=== PATIENT | male | born 1960 | race Caucasian/White ===

== ENCOUNTER 2020-11-19 07:11 | Emergency (ER) | payer BC ==
[2020-11-19] MEDS ORDERED: CYCLOBENZAPRINE 10 MG TAB ONE (07:55)
[2020-11-19] MEDS ORDERED: MORPHINE 4 MG/ML SYR ONE (07:56)
[2020-11-19] MEDS ORDERED: KETOROLAC 30 MG/ML INJ ONE (07:56)
[2020-11-19] MEDS ORDERED: ONDANSETRON 4 MG/2 ML VIAL ONE (07:56)
--- NOTE | 2020-11-19 08:25 | RAD REPORT ---
EXAM DESCRIPTION: CT - C Spine Wo Con - 11/19/2020 7:51 am CLINICAL HISTORY: Neck pain, decreased range of motion COMPARISON: None. TECHNIQUE: Axial 2 mm thick images of the cervical spine were obtained with sagittal and coronal rec onstruction images generated and reviewed. All CT scans are performed using dose optimization technique as appropriate and may include automated exposure control or mA/KV adjustment according to patient size. FINDINGS: Cervical bodies are normal in height. No compression fracture. No lytic, sclerotic or expa nsile bony destructive process. Very slight anterior subluxation of C3 on C4 secondary to prominent f acet degenerative change. Significant C5-6 disc space narrowing with foraminal and central canal endp late spurring. Prominent degenerative change present at the dens C1 level. Lateral masses of C1 are n ormally positioned relative to the occipital condyles of the skullbase as well as the body of C2. Significant right-sided foraminal stenosis C3-4 from uncovertebral joint hypertrophy and severe facet degenerative change. Bilateral bony foraminal encroachment present at C5-6. Posterior disc bulge and endplate spurring changes are seen at C3-4, C4-5, C5-6 and C6-7. These changes encroach into the laura tral canal. Disc herniation cannot be accurately assessed on CT imaging. Central canal detail is inherently limited on CT imaging. IMPRESSION: No fracture or acute cervical alignment abnormality. Advanced for age cervical spine degenerative changes are present with significant bony foraminal encr oachment on the right at C3-4 and bilateral at C5-6. Central canal detail is inherently limited on CT imaging. Concerns for disc herniation, central canal abnormality or occult bone process can be addressed with MR imaging.
--- NOTE | 2020-11-19 08:29 | ER ---
Nurse's Notes [facility] Name: Benjamín Acevedo Age: 60 yrs Sex: Male : 1960 Arrival Date: 11/19/2020 Time: 07:13 Bed 13 Private MD: Diagnosis: Sprain of ligaments of cervical spine;Torticollis Presentation: 11/19 07:24 Chief complaint: Patient states: pt reports that he has had severe neck pain since tr6 Wednesday. pt unable to turn his head. pt denies n/v/d or fever. Coronavirus screen: Client denies travel out of the [place] in the last 14 days. At this time, the client does not indicate any symptoms associated with coronavirus-19. Ebola Screen: Patient negative for fever greater than or equal to 101.5 degrees Fahrenheit, and additional compatible Ebola Virus Disease symptoms Patient denies exposure to infectious person. Patient denies travel to an Ebola-affected area in the 21 days before illness onset. Acute neurological deficit: none identified. Initial Sepsis Screen:. Onset of symptoms was November 17, 2020. 07:24 Method Of Arrival: Ambulatory tr6 07:24 Acuity: ELOY 4 tr6 07:33 Initial Sepsis Screen: Does the patient meet any 2 criteria? No. Patient's initial tr6 sepsis screen is negative. Does the patient have a suspected source of infection? No. Patient's initial sepsis screen is negative. Risk Assessment: Do you want to hurt yourself or someone else? Patient reports no desire to harm self or others. Triage Assessment: 07:28 General: Appears uncomfortable, Behavior is calm, cooperative, appropriate for age. tr6 Pain: Complains of pain in c/o neck pain radiating up to back of head and down to shoulders since wednesday Pain currently is 9 out of 10 on a pain scale. EENT: Denies. Neuro: No deficits noted. Cardiovascular: No deficits noted. Respiratory: No deficits noted. GI: No deficits noted. : No deficits noted. Derm: No deficits noted. Musculoskeletal: Reports pain in neck. Historical: - Allergies: 08:32 No Known Allergies; tr6 - Immunization history:: Adult Immunizations. - Social history:: Smoking status: Patient reports use of chewing tobacco. Patient uses alcohol, on a daily basis. claims drinking about a 6 pack/day. pt reports "6 pack daily, or maybe just on my days off". Screenin:32 Abuse screen: Denies threats or abuse. Nutritional screening: No deficits noted. tr6 Tuberculosis screening: No symptoms or risk factors identified. Fall Risk None identified. Assessment: 07:31 General: see triage assessment. Neuro: No deficits noted. Level of Consciousness is tr6 awake, alert, obeys commands, Oriented to person, place, time, situation, Appropriate for age [employer] are equal bilaterally Gait is steady, Speech is normal, Facial symmetry appears normal. 07:47 Reassessment: pt transferred to CT via wheelchair. tr6 07:55 Reassessment: Patient appears in no apparent distress at this time. No changes from tr6 previously documented assessment. Patient and/or family updated on plan of care and expected duration. Pain level reassessed. Patient is alert, oriented x 3, equal unlabored respirations, skin warm/dry/pink. pt returned from CT. pt reports that his pain is much better. aware. Pending CT results. 08:30 Pain: Goal of pain control is to sleep comfortably, perform activities of daily living, tr6 return to work, pt reports that his neck pain is "much better". Vital Signs: 07:24 BP 122 / 62; Pulse 91; Resp 18; Temp 98.4; Pulse Ox 100% ; tr6 ED Course: 07:13 Patient arrived in ED. am2 07:19 Samuel Warren MD is Attending Physician. tw4 07:28 Triage completed. tr6 07:31 Arm band placed on right wrist. Patient placed in an exam room. tr6 07:32 Patient has correct armband on for positive identification. Bed in low position. Call tr6 light in reach. Pulse ox on. NIBP on. 07:32 No provider procedures requiring assistance completed. tr6 07:45 Inserted saline lock: 20 gauge in left antecubital area, using aseptic technique. tr6 ,using aseptic technique. by SHAUNA Ruiz. 07:51 CT C Spine In Process Unspecified. EDMS 08:31 IV discontinued, intact, bleeding controlled, No redness/swelling at site. tr6 Administered Medications: 07:46 Drug: TORadol (ketorolac) 30 mg Route: IVP; Site: left antecubital; tr6 07:55 Follow up: Response: No adverse reaction; Pain is decreased tr6 07:46 Drug: Flexeril (cyclobenzaprine) 10 mg Route: PO; tr6 07:55 Follow up: Response: No adverse reaction; Pain is decreased tr6 07:46 Drug: morphine 4 mg Route: IVP; Site: left antecubital; tr6 07:55 Follow up: Response: No adverse reaction; Pain is decreased tr6 07:46 Drug: Zofran (Ondansetron) 4 mg Route: IVP; Site: left antecubital; tr6 07:54 Follow up: Response: No adverse reaction tr6 Outcome: 08:28 Discharge ordered by . tw4 08:31 Discharged to home ambulatory. tr6 08:31 Condition: improved 08:31 Discharge instructions given to patient. 08:41 Patient left the ED. tr6 Signatures: Dispatcher [employer] EDRadha Fisher Terrence, MD MD tw4 Sara Randolph RN RN tr6
--- NOTE | 2020-11-19 08:29 | EDPHYS ---
Physician Documentation [facility] Name: Benjamín Acevedo Age: 60 yrs Sex: Male : 1960 Arrival Date: 11/19/2020 Time: 07:13 Bed 13 Private MD: ED Physician Samuel Warren HPI: 11/19 07:34 This 60 yrs old Male presents to ER via Ambulatory with complaints of Neck Pain, <24hrs tw4 Old. 07:34 The patient or guardian complains of decreased range of motion, an injury, pain. The tw4 symptoms are located on the occipital area and base of the skull. Onset: The symptoms/episode began/occurred yesterday. Context: The problem was sustained at home. Associated signs and symptoms: The patient has no apparent associated signs or symptoms. The pain does not radiate. Modifying factors: The symptoms are alleviated by nothing. the symptoms are aggravated by nothing. The patient has not experienced similar symptoms in the past. Historical: - Allergies: 08:32 No Known Allergies; tr6 - Immunization history:: Adult Immunizations. - Social history:: Smoking status: Patient reports use of chewing tobacco. Patient uses alcohol, on a daily basis. claims drinking about a 6 pack/day. pt reports "6 pack daily, or maybe just on my days off". ROS: 07:34 Constitutional: Negative for fever, chills, and weight loss, Eyes: Negative for injury, tw4 pain, redness, and discharge, Cardiovascular: Negative for chest pain, palpitations, and edema, Respiratory: Negative for shortness of breath, cough, wheezing, and pleuritic chest pain, Abdomen/GI: Negative for abdominal pain, nausea, vomiting, diarrhea, and constipation, Back: Negative for injury and pain, MS/Extremity: Negative for injury and deformity, Skin: Negative for injury, rash, and discoloration, Neuro: Negative for headache, weakness, numbness, tingling, and seizure. Exam: 07:34 Constitutional: This is a well developed, well nourished patient who is awake, alert, tw4 and in no acute distress. Head/Face: Normocephalic, atraumatic. 07:34 Cardiovascular: Regular rate and rhythm with a normal S1 and S2. No gallops, murmurs, or rubs. Normal PMI, no JVD. No pulse deficits. Respiratory: Lungs have equal breath sounds bilaterally, clear to auscultation and percussion. No rales, rhonchi or wheezes noted. No increased work of breathing, no retractions or nasal flaring. Abdomen/GI: Soft, non-tender, with normal bowel sounds. No distension or tympany. No guarding or rebound. No evidence of tenderness throughout. MS/ Extremity: Pulses equal, no cyanosis. Neurovascular intact. Full, normal range of motion. Neuro: Awake and alert, GCS 15, oriented to person, place, time, and situation. Cranial nerves II-XII grossly intact. Motor strength 5/5 in all extremities. Sensory grossly intact. Cerebellar exam normal. Normal gait. 07:34 Neck: External neck: tenderness, that is moderate, of the occiput, left mid cervical area, right mid cervical area, left trapezius, lower cervical area and right trapezius, C-spine: no acute changes, Trachea: is midline with no obvious abnormalities, ROM/movement: limited range of motion, that is moderate, in any direction. Vital Signs: 07:24 BP 122 / 62; Pulse 91; Resp 18; Temp 98.4; Pulse Ox 100% ; tr6 MDM: 07:19 Patient medically screened. tw4 17:11 Data reviewed: vital signs, nurses notes. Data interpreted: Pulse oximetry: tw4 Interpretation: normal. Counseling: I had a detailed discussion with the patient and/or guardian regarding: the historical points, exam findings, and any diagnostic results supporting the discharge/admit diagnosis. Response to treatment: There is no appreciated change of the patient's symptoms at this time. Special discussion: I discussed with the patient/guardian in detail that at this point there is no indication for admission to the hospital. It is understood, however, that if the symptoms persist or worsen the patient needs to return immediately for re-evaluation. 11/19 07:30 Order name: CT C Spine; Complete Time: : tw4 Administered Medications: 07:46 Drug: TORadol (ketorolac) 30 mg Route: IVP; Site: left antecubital; tr6 07:55 Follow up: Response: No adverse reaction; Pain is decreased tr6 07:46 Drug: Flexeril (cyclobenzaprine) 10 mg Route: PO; tr6 07:55 Follow up: Response: No adverse reaction; Pain is decreased tr6 07:46 Drug: morphine 4 mg Route: IVP; Site: left antecubital; tr6 07:55 Follow up: Response: No adverse reaction; Pain is decreased tr6 07:46 Drug: Zofran (Ondansetron) 4 mg Route: IVP; Site: left antecubital; tr6 07:54 Follow up: Response: No adverse reaction tr6 Disposition: 11/19/20 08:28 Discharged to Home. Impression: Sprain of ligaments of cervical spine, Torticollis. - Condition is Stable. - Discharge Instructions: Acute Torticollis, Adult, Cervical Sprain. - Prescriptions for Ibuprofen 800 mg Oral Tablet - take 1 tablet by ORAL route every 8 hours As needed take with food; 30 tablet. Tramadol 50 mg Oral Tablet - take 1 tablet by ORAL route every 8 hours as needed; 12 tablet. Cyclobenzaprine 5 mg Oral Tablet - take 1 tablet by ORAL route 3 times per day As needed; 15 tablet. - Medication Reconciliation Form, Thank You Letter, Antibiotic Education, Prescription Opioid Use form. - Follow up: Private Physician; When: Upon discharge from the Emergency Department; Reason: Recheck today's complaints, Continuance of care, Re-evaluation by your physician. - Problem is new. - Symptoms have improved. Signatures: Dispatcher [employer] Samuel Rosenthal MD MD tw4 Sara Randolph RN RN tr6 Corrections: (The following items were deleted from the chart) 08:41 08:28 11/19/2020 08:28 Discharged to Home. Impression: Sprain of ligaments of cervical tr6 spine; Torticollis. Condition is Stable. Forms are Medication Reconciliation Form, Thank You Letter, Antibiotic Education, Prescription Opioid Use. Follow up: Private Physician; When: Upon discharge from the Emergency Department; Reason: Recheck today's complaints, Continuance of care, Re-evaluation by your physician. Problem is new. Symptoms have improved. tw4
[2020-11-19 08:49] VITALS: BP 122/62; TEMP 98.4; O2SAT 100
== END 2020-11-19 08:41 | disposition home or self-care (01) ==
LOC: ER 07:11
DX: S13.4XXA Sprain of ligaments of cervical spine, initial encounter (principal); X58.XXXA Exposure to other specified factors, initial encounter; F17.220 Nicotine dependence, chewing tobacco, uncomplicated
CPT/HCPCS: 72125; J2405; 96374; 96375; 99284

== ENCOUNTER 2022-09-20 13:21 | Emergency (ER) | payer BC ==
[2022-09-20 13:35] LABS: Absolute Lymphocytes (CBC) 0.9 K/uL (0.7-4.9); Hematocrit 47.1 % (39.6-49.0); Lymphocytes % 4.4 % (15.3-44.8); MCV 96.9 fL (80-100); MPV 7.1 fL (7.6-11.3); RBC Red Blood Cell Count 4.87 M/uL (4.33-5.43)
[2022-09-20] MEDS ORDERED: NA CHLORIDE 0.9% 1,000 ML ONE (13:35)
[2022-09-20 13:41] LABS: Protime INR 1.06
[2022-09-20 13:51] LABS: Potassium 3.8 mmol/L (3.5-5.1)
[2022-09-20 13:58] LABS: Albumin 3.9 g/dL (3.4-5.0); Bilirubin Direct 0.2 mg/dL (0-0.2); Protein, Total 7.9 g/dL (6.4-8.2)
[2022-09-20 14:00] LABS: Troponin High Sensitivity 130.8 pg/mL (<58.9)
--- NOTE | 2022-09-20 14:32 | RAD REPORT ---
EXAM DESCRIPTION: CT - Head C Spine Cap W Con - 09/20/2022 2:03 pm CLINICAL HISTORY: Head injury. History of multiple unwitnessed fall recently. Altered mental status. Forehead hematomas. COMPARISON: Chest Single View dated 09/20/2022; C Spine Wo Con dated 11/19/2020 TECHNIQUE: Head and cervical spine CT images were obtained without IV contrast. Chest, abdomen, and pelvis CT images were obtained following intravenous administration of 90 mL Isovue-300. Multiplanar reformats were generated and reviewed. All CT scans are performed using dose optimization technique as appropriate and may include automated exposure control or mA/KV adjustment according to patient size. FINDINGS: CT HEAD: No evidence of hyperdense intracranial hemorrhage. Large region of hypoattenuation in the right infer ior cerebellum, with mass-effect, effacing the lower aspect of the fourth ventricle, with mass effect on the medulla. A degree of leftward midline shift in the posterior fossa is noted, approximately 5 millimeters. No abnormal extra-axial fluid collections. Diffuse dilation of the supratentorial ventri cular system. No supratentorial midline shift no intraventricular hemorrhage. Areas of soft tissue sw elling/hematoma along the right frontal scalp. Up to moderate mucosal thickening within the left maxi llary sinus. No acute calvarial fracture. CT CERVICAL SPINE: Straightening of normal cervical lordosis which may be positional or secondary to muscle spasm. No ac lynda cervical spine fracture or subluxation. Vertebral body heights are well maintained. Multilevel de generative changes. Variable degrees of disc height loss, most pronounced at C5-6. There may be mild bony central canal stenosis at C5-6 secondary to a pronounced broad-based posterior disc osteophyte c omplex formation. Variable degrees of neural foraminal narrowing, most pronounced bilaterally at C5-6 , and on the right at C3-4. No hyperattenuating canal hematoma. Prevertebral and paraspinous soft tis sues are unremarkable. CT CHEST: No pneumothorax, pulmonary contusion or pleural fluid collection. No mediastinal hematoma and the aor ta and pulmonary arteries are unremarkable. No chest will mass or abnormal axillary finding. No displ aced rib fracture or other significant bony finding. CT ABDOMEN/ PELVIS: No evidence of traumatic injury to solid abdominal viscera. Gallbladder and biliary tree are unremark able. No bowel injury or significant finding. No free air, free fluid or abnormal fat stranding. No u rinary bladder abnormality. Mild superior endplate compression deformity at L2 is noted, with no adjacent edema, probably chronic in nature . Mildly displaced right ninth rib fracture. IMPRESSION: Large area of hypoattenuation in the right inferior cerebellum, with mass effect and lef tward shift of the midline posterior fossa structures, measuring 5 millimeter. This raises concern fo r an acute to subacute infarct. Possibility of an underlying mass with edema is less likely but canno t be entirely excluded. Diffuse dilation of the supratentorial ventricular system. Although no priors are available for marlys rison, the appearance raises concern for acute obstructive hydrocephalus. No acute traumatic abnormality of the cervical spine. Multilevel degenerative changes. Mildly displaced right ninth rib fracture. No other acute findings in the chest. No other acute findings in the abdomen and pelvis. The findings were communicated to Rogelio Valadez on 09/20/2022 at 14:22 hours.
--- NOTE | 2022-09-20 14:36 | RAD REPORT ---
EXAM DESCRIPTION: Christina Single View09/20/2022 2:31 pm CLINICAL HISTORY: fall COMPARISON: No comparisons TECHNIQUE: Portable AP view of the chest. FINDINGS: The lungs are clear. No pneumothorax or effusion. The cardiomediastinal contours are unrem arkable. IMPRESSION: No acute cardiopulmonary process.
--- NOTE | 2022-09-20 14:50 | ER ---
Nurse's Notes [facility] Name: Benjamín Acevedo Age: 62 yrs Sex: Male : 1960 Arrival Date: 09/20/2022 Time: 13:20 Bed 3 Private MD: Diagnosis: Altered mental status, unspecified;Fracture of one rib, right side;Cerebral infarction, unspecified;Contusion of unspecified part of head, initial encounter Presentation: 09/20 13:27 Chief complaint: EMS states: Called for AMS post-fall, falls were unwitnessed, ph states that she had gone home to check on him and found him altered w/ injuries to the head. Pt oriented to person and place, VSS, states that he fell 3 times but could not remember were. Coronavirus screen: Vaccine status: Patient reports being unvaccinated. Ebola Screen: No symptoms or risks identified at this time. Mechanism of Injury: The problem was sustained at home, resulted from a fall. Risk considerations:. Initial Sepsis Screen: Does the patient meet any 2 criteria? No. Patient's initial sepsis screen is negative. Does the patient have a suspected source of infection? No. Patient's initial sepsis screen is negative. Risk Assessment: Do you want to hurt yourself or someone else? Patient reports no desire to harm self or others. Onset of symptoms was September 20, 2022. 13:27 Method Of Arrival: EMS: [facility] 13:27 Acuity: ELOY 2 ph 13:33 Care prior to arrival: IV initiated. 20 GA, in the right antecubital area. Trauma event jl7 details: Injury occurred in the [facility], Injury occurred: at home. Injury occurred: September 20, 2022. 14:40 An acute neurological deficit is present. The charge nurse has been notified. jl7 Pre-hospital glucose is not applicable to this patient. Triage Assessment: 14:00 The onset of the patients symptoms was September 16, 2022 at 12:00. Neuro: Reports jl7 dizziness. Trauma Activation: Alert Physician: ED Physician; Name: Rory; Notified At: 13:19; Arrived At: 13:19 Physician: General Surgeon; Name: ; Notified At: 13:19; Arrived At: Physician: Radiology; Name: Shannan; Notified At: 13:19; Arrived At: 13:21 Physician: Respiratory; Name: ; Notified At: 13:19; Arrived At: Physician: Lab; Name: ; Notified At: 13:19; Arrived At: Stroke Activation: Symptom onset > 6 hours Physician: Stroke Attending; Name: ; Notified At: ; Arrived At: Physician: Chief Stroke Resident; Name: ; Notified At: ; Arrived At: Physician: Stroke Resident; Name: ; Notified At: ; Arrived At: Physician: ED Attending; Name: Rory; Notified At: 14:22; Arrived At: 13:20 Physician: ED Resident; Name: ; Notified At: ; Arrived At: Historical: - Allergies: 13:31 No Known Allergies; ph - Home Meds: 13:39 None [Active]; jl7 - PMHx: 13:39 None; jl7 - PSHx: 13:39 None; jl7 - Immunization history:: Adult Immunizations unknown. - Social history:: Smoking status: Patient reports the use of cigarette tobacco products, smokes one-half pack cigarettes per day, Patient uses alcohol, on a daily basis. admits to "couple of beers" a day. - Immunization history: Last tetanus immunization: unknown. Screenin:36 [facility] ED Fall Risk Assessment (Adult) History of falling in the last 3 months, ph including since admission Yes- fall prone (multiple falls) (3 pts) Confusion or Disorientation Yes (5 pts) Intoxicated or Sedated No (0 pts) Impaired Gait No (0 pts) Mobility Assist Device Used No (0 pt) Altered Elimination No (0 pt) Score/Fall Risk Level 3 or more points = High Risk Oriented to surroundings, Maintained a safe environment, Hourly rounding (assess needs \\T\\ fall precautionary measures) done. Abuse screen: Denies threats or abuse. Denies injuries from another. Nutritional screening: No deficits noted. Tuberculosis screening: No symptoms or risk factors identified. Primary Survey: 13:19 NO uncontrolled hemorrhage observed. A: The client is alert. Airway: patent, No jl7 supplemental oxygen in use on arrival. Breathing/Chest: Spontaneous respiratory effort, equal unlabored respirations, breath sounds clear bilaterally, regular pattern, symmetrical chest rise and fall. Circulation: No external hemorrhage present. Regular and strong central pulse, skin warm/dry/normal color. Disability Pupils are equal, round, reactive to light and accommodation. Client is alert. Exposure/Environment: All clothing and personal items were removed. Forensic evidence collection is not deemed to be indicated at this time. Items placed in patient belonging bag. There is no evidence of uncontrolled external bleeding. Obvious injury(ies) are noted at this time: Swelling to forehead A warming method has been applied: A warm blanket has been provided to the patient. 14:00 Reassessment Breathing: Spontaneous respiratory effort, equal unlabored respirations, jl7 breath sounds clear bilaterally, regular pattern with symmetrical chest rise and fall. Assessment: 13:33 General: Appears in no apparent distress. well groomed, Behavior is calm, cooperative, ph appropriate for age. Pain: Complains of pain in face and back. Neuro: Level of Consciousness is awake, alert, obeys commands, Oriented to person, place, Moves all extremities. Speech is normal, Pupils are PERRLA, swelling noted to R side of forehead. Cardiovascular: Patient's skin is warm and dry. Respiratory: Airway is patent Respiratory effort is even, unlabored. GI: Patient currently denies abdominal pain, nausea, vomiting. Derm: Skin is pink, warm \\T\\ dry. Musculoskeletal: Circulation, motion, and sensation intact. Range of motion: intact in all extremities, Swelling present in right side of forehead. Injury Description: Abrasion sustained to posterior aspect of right shoulder Bruise sustained to bilateral knees. 13:55 Reassessment: Pt back from CT, x-ray at bedside. . aa5 14:20 Reassessment: reports last known normal was 5 days ago, 09/16/2022. jl7 14:33 Reassessment: ABEL Vera at bedside reassessing pt and talking with pt's . jl7 14:40 VAN Scoring: Arm Drift: Patients demonstrates NO arm weakness. Patient is VAN Negative. jl7 14:40 TNKase (Tenecteplase) Screening: Contraindications: Patient reports onset of signs and jl7 symptoms of stroke greater than 6 hours ago: Yes. 15:30 Reassessment: Pt more confused, appears to be attempting to smoke his fingers. ERD jl7 notified and to bedside. 15:30 [place] Swallow Protocol Exclusion Criteria: Unable to remain alert for testing: Yes jl7 Result:. 15:30 Neuro: Level of Consciousness is awake, obeys commands, confused, Oriented to person, jl7 place. 16:30 Neuro: Level of Consciousness is awake, confused, Oriented to person. jl7 16:55 Reassessment: [facility] at bedside for transport. jl7 Vital Signs: 13:27 BP 189 / 114; Pulse 118; Resp 18; Temp 97.8; Pulse Ox 95% on R/A; Weight 72.57 kg; ph Height 5 ft. 7 in. (170.18 cm); 14:07 BP 165 / 98; Pulse 100; Resp 17; Pulse Ox 95% ; jl7 14:50 BP 167 / 95; Pulse 92; Resp 15; Pulse Ox 97% ; jl7 15:45 BP 178 / 96; Pulse 83; Resp 18; Pulse Ox 100% ; jl7 16:30 BP 144 / 75; Pulse 78; Resp 19; Pulse Ox 97% ; jl7 13:27 Body Mass Index 25.06 (72.57 kg, 170.18 cm) ph Faina Coma Score: 13:27 Eye Response: spontaneous(4). Verbal Response: confused(4). Motor Response: obeys ph commands(6). Total: 14. 13:35 Eye Response: spontaneous(4). Verbal Response: confused(4). Motor Response: obeys cp commands(6). Total: 14. 13:37 Eye Response: spontaneous(4). Verbal Response: confused(4). Motor Response: obeys ph commands(6). Total: 14. 14:07 Eye Response: spontaneous(4). Verbal Response: confused(4). Motor Response: obeys jl7 commands(6). Total: 14. 14:50 Eye Response: spontaneous(4). Verbal Response: confused(4). Motor Response: obeys jl7 commands(6). Total: 14. 15:45 Eye Response: to voice(3). Verbal Response: confused(4). Motor Response: obeys jl7 commands(6). Total: 13. 16:30 Eye Response: to voice(3). Verbal Response: confused(4). Motor Response: obeys jl7 commands(6). Total: 13. Trauma Score (Adult): 13:37 Eye Response: spontaneous(1); Verbal Response: confused(1); Motor Response: obeys ph commands(2); Systolic BP: > 89 mm Hg(4); Respiratory Rate: 10 to 29 per min(4); [place] Score: 14; Trauma Score: 12 NIH Stroke Scale Scores: 14:35 NIHSS Score: 2 jl7 14:45 NIHSS Score: 2 cp ED Course: 13:20 Patient arrived in ED. aa5 13:23 Rogelio Valadez MD is Attending Physician. rn 13:26 Unique Guevara RN is Primary Nurse. ph 13:28 Koffi Bolivar PA is PHCP. cp 13:30 Initial lab(s) drawn, by me, sent to lab. Maintain EMS IV. Dressing intact. Good blood jl7 return noted. Site clean \\T\\ dry. Gauge \\T\\ site: 20 right AC. 13:31 Triage completed. ph 13:33 Arm band placed on Patient placed in an exam room, on a stretcher, on case monitor, ph on pulse oximetry. 13:37 Patient has correct armband on for positive identification. Bed in low position. Call ph light in reach. Side rails up X 1. Client placed on continuous cardiac and pulse oximetry monitoring. NIBP monitoring applied. 13:38 Patient maintains SpO2 saturation greater than 95% on room air. Thermoregulation: warm jl7 blanket given to patient. 14:09 CT Traumagram (Head C Spine CAP W Con) In Process Unspecified. EDMS 14:33 XRAY Chest (1 view) In Process Unspecified. EDMS 15:15 attempted to initiate a transfer with the [facility] / stroke line as eb requested by ED physician with no answer then hung up on. 15:23 intiated a transfer with Osiris Valente from the [facility]. eb 15:43 per Osiris Valente from the [facility] they will have to decline the eb patient in transfer due to being at capacity. 15:44 transfer intiated with Zena from the [facility]. eb 15:51 Inserted saline lock: 20 gauge in right forearm, using aseptic technique. jl7 16:[address] Griffin the neuro senior online marketing manager for [facility] with Koffi kelley patient transfer consultation. 16:17 administrative approval given by Zena Davila from the [facility]/ allie patient has been accepted to [facility] Neuro ICU/ [facility] has accepted the patient in transfer / report to be called to [phone]. 17:00 No provider procedures requiring assistance completed. Patient transferred, IV remains jl7 in place. intact, No redness/swelling at site. Administered Medications: 14:08 Drug: NS 0.9% 500 ml Route: IV; Rate: 1 bolus; Site: right antecubital; jl7 14:47 Follow up: IV Intake: 500ml jl7 16:58 Follow up: Response: No adverse reaction; IV Status: Infusion continued upon transfer jl7 14:14 Not Given (Other Intervention Used): NS 0.9% 1000 ml IV at 1000 ml once ph 15:08 Drug: fentaNYL (PF) 25 mcg Route: IVP; Site: right antecubital; jl7 16:14 Follow up: Response: No adverse reaction ph 16:31 Drug: Keppra (levETIRAcetam) 1000 mg Route: IV; Rate: calculated rate; Site: right ph forearm; 16:58 Follow up: Response: No adverse reaction; IV Status: Completed infusion jl7 16:58 Drug: fentaNYL (PF) 25 mcg Route: IVP; Site: right forearm; jl7 17:05 Follow up: Response: No adverse reaction ph Medication: 13:37 VIS not applicable for this client. ph Point of Care Testin:22 perhospital high jl7 Ranges: Intake: 14:47 IV: 500ml; Total: 500ml. jl7 17:00 PO: 0ml; IV: 700ml; Total: 1200ml. jl7 Output: 17:00 Urine: 800ml; Total: 800ml. jl7 Outcome: 14:49 ER care complete, transfer ordered by MD. kennedy 17:[address] [facility], Transfer form completed. jl7 17:00 Condition: stable 17:00 Discharge instructions given to patient, family, Instructed on the need for transfer, Demonstrated understanding of instructions. 17:00 Patient's length of stay was not longer than 2 hours. jl7 17:35 Patient left the ED. jl7 NIH Stroke Scale - NIH Stroke Score Date: 09/20/2022 Time: 14:35 Total Score = 2 1a. Level of Consciousness (LOC) - 0(Alert) 1b. Level of Consciousness (LOC) (Month \\T\\ Age) - 0(Both) 1c. LOC Commands (Open \\T\\ Closes Eyes/Window Trimmer) - 0(Both) 2. Best Gaze (Lateral Gaze Paresis) - 0(Normal) 3. Visual Field Loss - 0(No visual loss) 4. Facial Palsy - 0(Normal) 5a. Left Arm: Motor (10-second hold) - 0(No drift) 5b. Right Arm: Motor (10-second hold) - 0(No drift) 6a. Left Leg: Motor (5-second hold - always test supine) - 0(No drift) 6b. Right Leg: Motor (5-second hold - always test supine) - 0(No drift) 7. Limb Ataxia (finger/nose \\T\\ heel/agarwal - test with eyes open) - 0(Absent) 8. Sensory Loss (pinprick arms/legs/face) - 0(Normal) 9. Best Language: Aphasia (description/naming/reading) - 1(Mild to moderate aphasia) 10. Dysarthria (speech clarity - read or repeat words) - 1(Mild to Moderate) 11. Extinction and Inattention (visual/tactile/auditory/spatial/personal) - 0(No abnormality) Initials: jl7 NIH Stroke Scale - NIH Stroke Score Date: 09/20/2022 Time: 14:45 Total Score = 2 1a. Level of Consciousness (LOC) - 0(Alert) 1b. Level of Consciousness (LOC) (Month \\T\\ Age) - 0(Both) 1c. LOC Commands (Open \\T\\ Closes Eyes/Window Trimmer) - 0(Both) 2. Best Gaze (Lateral Gaze Paresis) - 0(Normal) 3. Visual Field Loss - 0(No visual loss) 4. Facial Palsy - 0(Normal) 5a. Left Arm: Motor (10-second hold) - 0(No drift) 5b. Right Arm: Motor (10-second hold) - 0(No drift) 6a. Left Leg: Motor (5-second hold - always test supine) - 0(No drift) 6b. Right Leg: Motor (5-second hold - always test supine) - 0(No drift) 7. Limb Ataxia (finger/nose \\T\\ heel/agarwal - test with eyes open) - 0(Absent) 8. Sensory Loss (pinprick arms/legs/face) - 0(Normal) 9. Best Language: Aphasia (description/naming/reading) - 1(Mild to moderate aphasia) 10. Dysarthria (speech clarity - read or repeat words) - 1(Mild to Moderate) 11. Extinction and Inattention (visual/tactile/auditory/spatial/personal) - 0(No abnormality) Initials: cp Signatures: Dispatcher [employer] EDMS Rogelio Valadez MD MD rn Haley Knight RN RN aa5 Unique Guevara RN RN Koffi Hilario PA PA cp Leal, Jahala RN RN jl7 Osiris Ramos Corrections: (The following items were deleted from the chart) 15:18 14:50 BP 118 / 74; Pulse 92bpm; Resp 15bpm; Pulse Ox 97%; jl7 jl7 16:10 16:02 connected the neuro senior online marketing manager for [facility] with Koffi kelley patient transfer consultation. allie
--- NOTE | 2022-09-20 14:50 | EDPHYS ---
Physician Documentation [facility] Name: Benjamín Acevedo Age: 62 yrs Sex: Male : 1960 Arrival Date: 09/20/2022 Time: 13:20 Bed 3 Private MD: ED Physician Rogelio Valadez HPI: 09/20 13:35 This 62 yrs old Male presents to ER via EMS with complaints of Head cp Injury-Adult. 13:35 The patient or guardian reports injury. The complaints affect the forehead and right cp oriental orthodox. Context of injury: The problem was sustained at home, resulted from a fall. 13:35 Associated signs and symptoms: Pertinent positives: altered mental status. cp 13:35 Patient brought to ED by EMS after reported fall. Patient found by neighbors outside of home asking for help. EMS reports unable to recall recent events leading up to fall. 13:35 Patient presents to ED with AMS. Unknown last normal. cp Historical: - Allergies: 13:31 No Known Allergies; ph - Home Meds: 13:39 None [Active]; jl7 - PMHx: 13:39 None; jl7 - PSHx: 13:39 None; jl7 - Immunization history:: Adult Immunizations unknown. - Social history:: Smoking status: Patient reports the use of cigarette tobacco products, smokes one-half pack cigarettes per day, Patient uses alcohol, on a daily basis. admits to "couple of beers" a day. - Immunization history: Last tetanus immunization: unknown. ROS: 13:38 Constitutional: Negative for fever. cp 13:38 Cardiovascular: Negative for chest pain. cp 13:38 Abdomen/GI: Negative for abdominal pain, vomiting. 13:38 Neuro: Positive for altered mental status. 13:38 Unable to obtain ROS due to altered mental status. Exam: 13:33 ECG was reviewed by the Attending Physician. cp 13:40 Head/Face: Normocephalic, atraumatic. cp 13:40 Constitutional: The patient appears alert, awake, non-diaphoretic, non-toxic, well developed, well nourished, uncomfortable. 13:40 Eyes: Periorbital structures: appear normal, Pupils: equal, round, and reactive to light and accomodation, Conjunctiva: normal, Sclera: no appreciated abnormality, Lids and lashes: appear normal, bilaterally. 13:40 ENT: External ear(s): are unremarkable, Nose: is normal, Mouth: Lips: moist, Oral mucosa: pink and intact, moist, Posterior pharynx: Airway: no evidence of obstruction, patent. 13:40 Neck: C-spine: C-collar placed in ED. 13:40 Chest/axilla: Inspection: normal, Palpation: is normal, no crepitus, no tenderness. 13:40 Cardiovascular: Rate: tachycardic, Rhythm: regular, Edema: is not appreciated, JVD: is not appreciated. 13:40 Respiratory: the patient does not display signs of respiratory distress, Respirations: normal, no use of accessory muscles, no retractions, Breath sounds: are clear throughout, no decreased breath sounds, no stridor, no wheezing. 13:40 Abdomen/GI: Inspection: abdomen appears normal, Palpation: abdomen is soft and non-tender, in all quadrants. 13:40 Back: pain, that is mild, ROM is normal. 13:40 Neuro: Orientation: to person, Mentation: slow to respond, confused, Motor: moves all fours, strength is normal. 13:40 Musculoskeletal/extremity: Extremities: grossly normal except: noted in the left hand cp and left knee and right knee: ecchymosis, swelling, tenderness, ROM: full active range of motion, in all extremities. Vital Signs: 13:27 BP 189 / 114; Pulse 118; Resp 18; Temp 97.8; Pulse Ox 95% on R/A; Weight 72.57 kg; ph Height 5 ft. 7 in. (170.18 cm); 14:07 BP 165 / 98; Pulse 100; Resp 17; Pulse Ox 95% ; jl7 14:50 BP 167 / 95; Pulse 92; Resp 15; Pulse Ox 97% ; jl7 15:45 BP 178 / 96; Pulse 83; Resp 18; Pulse Ox 100% ; jl7 16:30 BP 144 / 75; Pulse 78; Resp 19; Pulse Ox 97% ; jl7 13:27 Body Mass Index 25.06 (72.57 kg, 170.18 cm) ph NIH Stroke Scale Scores: 14:35 NIHSS Score: 2 jl7 14:45 NIHSS Score: 2 cp Cardinal Coma Score: 13:27 Eye Response: spontaneous(4). Verbal Response: confused(4). Motor Response: obeys ph commands(6). Total: 14. 13:35 Eye Response: spontaneous(4). Verbal Response: confused(4). Motor Response: obeys cp commands(6). Total: 14. 13:37 Eye Response: spontaneous(4). Verbal Response: confused(4). Motor Response: obeys ph commands(6). Total: 14. 14:07 Eye Response: spontaneous(4). Verbal Response: confused(4). Motor Response: obeys jl7 commands(6). Total: 14. 14:50 Eye Response: spontaneous(4). Verbal Response: confused(4). Motor Response: obeys jl7 commands(6). Total: 14. 15:45 Eye Response: to voice(3). Verbal Response: confused(4). Motor Response: obeys jl7 commands(6). Total: 13. 16:30 Eye Response: to voice(3). Verbal Response: confused(4). Motor Response: obeys jl7 commands(6). Total: 13. Trauma Score (Adult): 13:37 Eye Response: spontaneous(1); Verbal Response: confused(1); Motor Response: obeys ph commands(2); Systolic BP: > 89 mm Hg(4); Respiratory Rate: 10 to 29 per min(4); Cardinal Score: 14; Trauma Score: 12 MDM: 13:23 Patient medically screened. rn 13:45 Differential diagnosis: Contusion of Hematoma on Laceration of Intracranial bleed- cp Concussion cerebral contusion, CVA. 16:15 Data reviewed: vital signs, nurses notes, lab test result(s), EKG, radiologic studies, cp CT scan, plain films. 16:15 Management of patient was discussed with the following: DR Griffin \\T\\[facility] will cp accept patient as transfer. I considered the following discharge prescriptions or medication management in the emergency department Medications were administered in the Emergency Department. See MAR. Test considered but Not performed: CT: head and neck angio. Historians other than the Patient: Spouse/Significant Other: EMS provides initial HPI and provides HPI. Counseling: I had a detailed discussion with the patient and/or guardian regarding: the historical points, exam findings, and any diagnostic results supporting the discharge/admit diagnosis, lab results, radiology results, the need to transfer to another facility, for higher level of care. 09/20 13:24 Order name: Basic Metabolic Panel 09/20 13:24 Order name: CBC with Diff 09/20 13:24 Order name: Protime (+inr) 09/20 13:24 Order name: Ptt, Activated 09/20 13:24 Order name: ETOH Level 09/20 13:29 Order name: Troponin High Sensitivity 09/20 13:32 Order name: UDS 09/20 13:32 Order name: Urine Microscopic Only 09/20 13:36 Order name: CBC with Automated Diff [facility] 09/20 13:37 Interpretation: Normal except: WBC 19.60; MPV 7.1; JEY% 87.5; LYM% 4.4; NEUT A 17.2; cp MNA 1.6. 09/20 13:37 Order name: Lactate w/ 2H reflex if indic.; Complete Time: 14:41 09/20 14:41 Interpretation: Reviewed. 09/20 13:41 Order name: Protime (+INR) [facility] 09/20 13:41 Order name: PTT, Activated Partial Thromb [facility] 09/20 13:47 Order name: Alcohol Serum/Plasma [facility] 09/20 14:01 Interpretation: ETOH < 10; Reviewed. 09/20 13:23 Order name: CT Traumagram (Head C Spine CAP W Con); Complete Time: 14:41 aa5 09/20 13:24 Order name: Labs collected and sent; Complete Time: 13:30 09/20 13:24 Order name: EKG; Complete Time: 13:25 09/20 13:30 Order name: XRAY Chest (1 view); Complete Time: 14:41 09/20 13:51 Order name: Basic Metabolic Panel [facility] 09/20 14:00 Interpretation: Normal except: NA 130; CL 97; GLUC 165; GFR 67. 09/20 14:00 Order name: Liver (Hepatic) Function [facility] 09/20 14:02 Interpretation: Normal except: GLOB 4.0; A/G 1.0. 09/20 14:00 Order name: Troponin High Sensitivity [facility] 09/20 14:02 Interpretation: Abnormal: Troponin HS 130.8. 09/20 15:25 Order name: SARS RAPID; Complete Time: 16:06 09/20 16:09 Order name: Urine Dipstick-Ancillary [facility] 09/20 13:24 Order name: EKG - Nurse/Tech; Complete Time: 13:30 rn 09/20 13:24 Order name: Cardiac monitoring; Complete Time: 13:30 rn 09/20 13:24 Order name: O2 Sat Monitoring; Complete Time: 13:30 rn 09/20 13:32 Order name: Urine Dipstick-Ancillary (obtain specimen); Complete Time: 16:32 cp EC:33 Rate is 113 beats/min. Rhythm is regular. HI interval is normal. QRS interval is cp normal. QT interval is normal. T waves are Inverted in lead aVR. Interpreted by me. Reviewed by me. Administered Medications: 14:08 Drug: NS 0.9% 500 ml Route: IV; Rate: 1 bolus; Site: right antecubital; jl7 14:47 Follow up: IV Intake: 500ml jl7 16:58 Follow up: Response: No adverse reaction; IV Status: Infusion continued upon transfer jl7 14:14 Not Given (Other Intervention Used): NS 0.9% 1000 ml IV at 1000 ml once ph 15:08 Drug: fentaNYL (PF) 25 mcg Route: IVP; Site: right antecubital; jl7 16:14 Follow up: Response: No adverse reaction ph 16:31 Drug: Keppra (levETIRAcetam) 1000 mg Route: IV; Rate: calculated rate; Site: right ph forearm; 16:58 Follow up: Response: No adverse reaction; IV Status: Completed infusion jl7 16:58 Drug: fentaNYL (PF) 25 mcg Route: IVP; Site: right forearm; jl7 17:05 Follow up: Response: No adverse reaction ph Point of Care Testin:22 perhospital high jl7 Ranges: Critical Glucose Levels:Adult <50 mg/dl or >400 mg/dl <40 mg/dl or >180 mg/dl Disposition Summary: 09/20/22 14:49 Transfer Ordered Reason: Higher level of care cp Condition: Stable cp Problem: new cp Symptoms: have improved cp Transfer Location: [facility](09/20/22 17:03) cp Accepting Physician: DR Griffin(09/20/22 17:35) jl7 Diagnosis - Altered mental status, unspecified cp - Fracture of one rib, right side cp - Cerebral infarction, unspecified cp - Contusion of unspecified part of head, initial encounter cp Forms: - Medication Reconciliation Form cp - SBAR form cp NIH Stroke Scale - NIH Stroke Score Date: 09/20/2022 Time: 14:35 Total Score = 2 1a. Level of Consciousness (LOC) - 0(Alert) 1b. Level of Consciousness (LOC) (Month \\T\\ Age) - 0(Both) 1c. LOC Commands (Open \\T\\ Closes Eyes/Rubber Cutter And Shape Carver) - 0(Both) 2. Best Gaze (Lateral Gaze Paresis) - 0(Normal) 3. Visual Field Loss - 0(No visual loss) 4. Facial Palsy - 0(Normal) 5a. Left Arm: Motor (10-second hold) - 0(No drift) 5b. Right Arm: Motor (10-second hold) - 0(No drift) 6a. Left Leg: Motor (5-second hold - always test supine) - 0(No drift) 6b. Right Leg: Motor (5-second hold - always test supine) - 0(No drift) 7. Limb Ataxia (finger/nose \\T\\ heel/agarwal - test with eyes open) - 0(Absent) 8. Sensory Loss (pinprick arms/legs/face) - 0(Normal) 9. Best Language: Aphasia (description/naming/reading) - 1(Mild to moderate aphasia) 10. Dysarthria (speech clarity - read or repeat words) - 1(Mild to Moderate) 11. Extinction and Inattention (visual/tactile/auditory/spatial/personal) - 0(No abnormality) Initials: jl7 NIH Stroke Scale - NIH Stroke Score Date: 09/20/2022 Time: 14:45 Total Score = 2 1a. Level of Consciousness (LOC) - 0(Alert) 1b. Level of Consciousness (LOC) (Month \\T\\ Age) - 0(Both) 1c. LOC Commands (Open \\T\\ Closes Eyes/Rubber Cutter And Shape Carver) - 0(Both) 2. Best Gaze (Lateral Gaze Paresis) - 0(Normal) 3. Visual Field Loss - 0(No visual loss) 4. Facial Palsy - 0(Normal) 5a. Left Arm: Motor (10-second hold) - 0(No drift) 5b. Right Arm: Motor (10-second hold) - 0(No drift) 6a. Left Leg: Motor (5-second hold - always test supine) - 0(No drift) 6b. Right Leg: Motor (5-second hold - always test supine) - 0(No drift) 7. Limb Ataxia (finger/nose \\T\\ heel/agarwal - test with eyes open) - 0(Absent) 8. Sensory Loss (pinprick arms/legs/face) - 0(Normal) 9. Best Language: Aphasia (description/naming/reading) - 1(Mild to moderate aphasia) 10. Dysarthria (speech clarity - read or repeat words) - 1(Mild to Moderate) 11. Extinction and Inattention (visual/tactile/auditory/spatial/personal) - 0(No abnormality) Initials: cp Addendum: 09/22/2022 07:15 Co-signature as Attending Physician, Rogelio Valadez MD I reviewed the patient's rn care provided by the Advanced Practice Provider and agree with the diagnosis and treatment plan. Signatures: Dispatcher [employer] [facility] Rogelio Valadez MD MD rn Hall, Patricia, RN RN Koffi Bolivar PA PA Brianne Barry RN RN jl7 Corrections: (The following items were deleted from the chart) 09/20 14:09 13:33 HEPATIC FUNCTION+C.LAB.BRZ ordered. [facility] 14:45 09/19 13:40 Constitutional: The patient appears alert, awake, non-diaphoretic, cp non-toxic, well developed, well nourished, uncomfortable, cp 09/20 14:45 09/19 13:40 Head/Face: Normocephalic, atraumatic. cp 09/20 14:45 09/19 13:40 Eyes: Periorbital structures: appear normal, Pupils: equal, round, cp and reactive to light and accomodation, Conjunctiva: normal, Sclera: no appreciated abnormality, Lids and lashes: appear normal, bilaterally, cp 09/20 14:45 09/19 13:40 ENT: External ear(s): are unremarkable, Nose: is normal, Mouth: cp Lips: moist, Oral mucosa: pink and intact, moist, Posterior pharynx: Airway: no evidence of obstruction, patent, cp 09/20 14:45 09/19 13:40 Neck: C-spine: C-collar placed in ED, cp 09/20 14:09/19 13:40 Chest/axilla: Inspection: normal, Palpation: is normal, no cp crepitus, no tenderness, cp 09/20 14:45 09/19 13:40 Cardiovascular: Rate: tachycardic, Rhythm: regular, Edema: is not cp appreciated, JVD: is not appreciated, cp 09/20 14:09/19 13:40 Respiratory: the patient does not display signs of respiratory cp distress, Respirations: normal, no use of accessory muscles, no retractions, Breath sounds: are clear throughout, no decreased breath sounds, no stridor, no wheezing, cp 09/20 14:09/19 13:40 Abdomen/GI: Inspection: abdomen appears normal, Palpation: abdomen cp is soft and non-tender, in all quadrants, cp 09/20 14:09/19 13:40 Back: pain, that is mild, ROM is normal, cp cp 09/20 14:09/19 13:40 Neuro: Orientation: to person, Mentation: slow to respond, cp confused, Motor: moves all fours, strength is normal, cp 09/20 15:33 15:24 Head Angio+CT.RAD.BRZ ordered. EDMS EDMS 15:34 15:24 Neck Angio+CT.RAD.BRZ ordered. EDMS EDMS 16:15 14:49 Doctor cp cp 17:03 14:49 [facility] cp cp 17:03 16:15 DR Griffin cp cp 17:35 17:03 DR Griffin cp jl7
[2022-09-20] MEDS ORDERED: FENTANYL CITR 100 MCG/2 ML ONE ×2 (15:09→16:58)
[2022-09-20 15:57] LABS: SARS-CoV-2 Antigen Rapid Res Negative (Negative)
[2022-09-20 16:09] LABS: Urine Blood Negative (Negative); Urine Glucose Negative (Negative); Urine Protein 1+ (Negative); Urine pH 5.5 (5.0-7.0)
[2022-09-20] MEDS ORDERED: NA CHLORIDE 0.9% 100 ML ONE (16:25)
[2022-09-20] MEDS ORDERED: LEVETIRACETAM 500 MG/5 ML VIAL IV ONE (16:25)
[2022-09-20 16:32] LABS: Barbiturates NEGATIVE (NEGATIVE); Benzodiazepines NEGATIVE (NEGATIVE); METHAMPHETAM NEGATIVE (NEGATIVE); Methadone NEGATIVE (NEGATIVE); Opiates NEGATIVE (NEGATIVE); Phencyclidine NEGATIVE (NEGATIVE); THC Cannibis NEGATIVE (NEGATIVE)
[2022-09-20 16:36] LABS: Urine Bacteria None Seen /HPF (<20); Urine Mucus Slight /HPF (None Seen)
[2022-09-20 17:39] VITALS: TEMP 97.8
[2022-09-20 17:43] VITALS: BP 144/75; O2SAT 97
[2022-09-21 12:27] LABS: Cocaine NEGATIVE (NEGATIVE)
--- NOTE | 2022-09-21 18:42 | EKG ---
Test Date: 2022-09-20 Test Time: 13:28:26 Child Care Provider: BOB MEASUREMENT RESULTS: Intervals: Rate: 113 SC: 136 QRSD: 76 QT: 308 QTc: 422 [place]: P: 47 SC: 136 QRS: 23 T: 73 INTERPRETIVE STATEMENTS: Sinus tachycardia Otherwise normal ECG No previous ECG available for comparison Electronically Signed On 09-21-22 18:39:08 [employer]ATCH[employer] by Danilo Sandoval
== END 2022-09-20 17:35 | disposition short-term general hospital (02) ==
LOC: ER 13:21
DX: I63.9 Cerebral infarction, unspecified (principal); R29.702 NIHSS score 2; S22.31XA Fracture of one rib, right side, initial encounter for closed fracture; S00.83XA Contusion of other part of head, initial encounter; F17.210 Nicotine dependence, cigarettes, uncomplicated; Z20.822 Contact with and (suspected) exposure to COVID-19
CPT/HCPCS: 93005; 85025; 80048; 36415; 85610; 82565; 80076; 83605; 85730; 84484; 80307; 70450; 72125; 71260; 74177; 71045; 99285; 87811; Q9967; J3010 ×2; J1953; J7030; G0480; 81003; 81015